=== PATIENT | male | born 1980 | race Caucasian/White ===

== ENCOUNTER 2024-11-30 20:21 | Emergency (ER) | payer SELFPAY ==
[~2024-11-30] VITALS: Ht 167.6 cm; Wt 64.0 kg
[2024-11-30 20:47] VITALS: BP 109/71; PULSE 111; RESP 20; TEMP 37; O2SAT 97
== END 2024-11-30 22:05 | disposition home or self-care (01) ==
LOC: ER 20:21
DX: F15.90 Other stimulant use, unspecified, uncomplicated (principal); F31.9 Bipolar disorder, unspecified
CPT/HCPCS: 99283